=== PATIENT | female | born 2005 | race Caucasian/White ===

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

== ENCOUNTER 2024-03-18 11:23 | Outpatient (CLI) | payer OTHER, SELFPAY ==
[2024-03-18 11:40] LABS: Glucose 90 mg/dL (74-106); TSH (W/Ref FT4) 1.76 uIU/mL (0.52-4.13)
== END 2024-03-18 11:24 | disposition home or self-care (01) ==
PROVIDERS: PCP Student in an Organized Health Care Education/Training Program; Visit Provider Student in an Organized Health Care Education/Training Program
DX: E03.9 Hypothyroidism, unspecified (principal); F41.9 Anxiety disorder, unspecified
CPT/HCPCS: 36415; 82947; 84443

== ENCOUNTER 2024-07-06 14:47 | Outpatient (CLI) | payer OTHER, SELFPAY ==
[2024-07-06 15:03] LABS: HCT 41.8 % (36.0-46.0); HGB 13.9 g/dL (11.2-15.7); MCHC 33.3 % (32.0-36.0); MCV 87 fL (80-95); MPV 9.1 fL (8.0-11.0); Platelet Count 277 10^3/uL (130-400); RDW 13.5 % (11.7-14.6); RDW-SD 43.9 fL; WBC 12.34 10^3/uL (4.4-10.8)
[2024-07-06 15:06] LABS: ESR 36 mm/hr (0-20)
[2024-07-06 15:19] LABS: Absolute Monocyte Count 0.12 10^3/uL (0.1-0.8); Absolute Neutrophil Count 6.42 10^3/uL (1.2-6.7); Atypical Lymphocytes % 2 %; Diff Comment Manual Differential; RBC Morphology Normal
[2024-07-06 16:33] LABS: ALT 262 U/L (14-59); AST 143 U/L (15-37); Albumin 3.1 g/dL (3.4-5.0); Alkaline Phosphatase 183 U/L (46-116); Anion Gap 7.3 mmol/L (3-11); BUN 14 mg/dL (7-18); Bilirubin, Total 0.29 mg/dL (0.2-1.0); C-Reactive Protein 5.03 mg/dL (<or=0.5); CO2 29.7 mmol/L (21.0-32.0); CREATININE 0.8 mg/dL (0.55-1.02); Calcium 9.5 mg/dL (8.5-10.1); Chloride 104 mmol/L (98-107); Estimated GFR 108.78 (mL/min/1.73m2); Glucose 164 mg/dL (74-106); Potassium 3.6 mmol/L (3.5-5.1); Sodium 141 mmol/L (136-145); Total Protein 7.9 g/dL (6.4-8.2)
[2024-07-08 10:16] LABS: EBNA IgG Negative (Negative); EBV Interpretation (See Note); VCA IgG Positive (Negative); VCA IgM Positive (Negative)
== END 2024-07-06 14:48 | disposition home or self-care (01) ==
LOC: LBO 14:47
PROVIDERS: PCP Student in an Organized Health Care Education/Training Program; Visit Provider Pediatrics
DX: B27.90 Infectious mononucleosis, unspecified without complication (principal); R16.2 Hepatomegaly with splenomegaly, not elsewhere classified
CPT/HCPCS: 36415; 80053; 85652; 85025; 86140; 86664; 86665

== ENCOUNTER 2024-07-13 14:55 | Outpatient (CLI) | payer OTHER, SELFPAY ==
[2024-07-13 15:12] LABS: Abs Immature Grans 0.06 10^3/uL (0.0-0.06); Absolute Basophil Count 0.12 10^3/uL (0.0-0.2); Absolute Eosinophil Count 0.13 10^3/uL (0.0-0.7); Absolute Lymphocyte Count 4.81 10^3/uL (1.2-3.4); Absolute Monocyte Count 0.88 10^3/uL (0.1-0.8); Absolute Neutrophil Count 3.63 10^3/uL (1.2-6.7); Basophils % 1.2 %; Eosinophils % 1.3 %; HCT 42.3 % (36.0-46.0); HGB 13.5 g/dL (11.2-15.7); Immature Grans % 0.6 %; Lymphocytes % 49.9 %; MCH 28.4 pg (27.0-33.0); MCHC 31.9 % (32.0-36.0); MCV 89 fL (80-95); MPV 8.2 fL (8.0-11.0); Monocytes % 9.1 %; Neutrophils % 37.9 %; Platelet Count 424 10^3/uL (130-400); RBC 4.75 10^6/uL (3.93-5.22); RDW 12.9 % (11.7-14.6); RDW-SD 42.5 fL; WBC 9.63 10^3/uL (4.4-10.8)
[2024-07-13 15:15] LABS: ESR 24 mm/hr (0-20)
[2024-07-13 15:48] LABS: Hemoglobin A1C 5.7 % (<5.7)
[2024-07-13 16:10] LABS: GGT 82 U/L
[2024-07-13 16:15] LABS: C-Reactive Protein < 0.50 mg/dL (<or=0.5)
[2024-07-14 12:46] LABS: ALT 113 U/L (14-59); AST 34 U/L (15-37); Albumin 3.5 g/dL (3.4-5.0); Alkaline Phosphatase 109 U/L (46-116); BUN 19 mg/dL (7-18); Bilirubin, Total 0.28 mg/dL (0.2-1.0); CREATININE 0.7 mg/dL (0.55-1.02); Calcium 9.6 mg/dL (8.5-10.1); Chloride 104 mmol/L (98-107); Estimated GFR 127.69 (mL/min/1.73m2); Glucose 74 mg/dL (74-106); Potassium 3.9 mmol/L (3.5-5.1); Sodium 143 mmol/L (136-145); Total Protein 7.8 g/dL (6.4-8.2)
[2024-07-20 10:59] LABS: Insulin, Free 21 mcIU/mL (3 - 25); Insulin, Total 22 mcIU/mL (3 - 25)
== END 2024-07-13 14:56 | disposition home or self-care (01) ==
LOC: LBO 15:04
PROVIDERS: PCP Student in an Organized Health Care Education/Training Program; Referring Provider Pediatrics; Visit Provider Pediatrics
DX: B27.09 Gammaherpesviral mononucleosis with other complications (principal); B17.8 Other specified acute viral hepatitis; R73.09 Other abnormal glucose; B27.90 Infectious mononucleosis, unspecified without complication
CPT/HCPCS: 36415; 80053; 83525; 83527; 85652; 82977; 83036; 85025; 86140